=== PATIENT | male | born 1990 | race Caucasian/White ===

== ENCOUNTER 2016-12-12 14:31 | Emergency (ER) | payer OTHER ==
--- NOTE | 2016-12-12 16:14 | ERNOTE ---
Medical Problem HPI - Narrative Date of Service: 12/12/16 - General Chief Complaint: General Assessment Time Seen by Provider: 12/12/16 15:53 Source: patient Exam Limitations: no limitations - Immun/Allergies/Home Medications Immunizations: IMMUNIZATION HX Immunizations Up to Date Yes Allergies/Adverse Reactions: Allergies hydrocortisone [From Hydrocortone] Adverse Reaction (Intermediate, Verified 11/27 14:45) rash hydrocortisone acetate [From Hydrocortone] Adverse Reaction (Intermediate, Verified 12/12/16 14:45) rash hydrocortisone sod phosphate [From Hydrocortone] Adverse Reaction (Intermediate , Verified 12/12/16 14:45) rash Home Medications: HOME MEDICATIONS NK [No Home Medication] 07/21/13 [Last Taken Unknown] - History of Present History Narrative: Pt. comes in with c/o rhinorrhea, nasal congestion, cough, chest congestion, fever, and B rib pain for 5 days. Pt. denies any ear pain, cardiac chest pain, NVD, SOB, prehospital treatment, alleviating factors or aggravating factors. Review of Systems - Review of Systems Constitutional: Present: fever, fatigue, malaise. Absent: chills, weakness, weight loss, decreased activity level EYE: Present: no symptoms reported ENT: Present: nose congestion, nasal drainage, sore throat Respiratory: Present: cough. Absent: shortness of breath, orthopnea, wheezing Cardiology: Present: chest pain - B lower rib pain. Absent: palpitations Gastrointestinal/Abdominal: Present: no symptoms reported. Absent: nausea, vomiting, diarrhea Genitourinary: Present: no symptoms reported Musculoskeletal: Present: no symptoms reported. Absent: back pain, joint pain Neurological: Present: no symptoms reported. Absent: headache, dizziness/light- headedness All Other Systems: All systems neg except as marked - Patient's Past Medical History Patient History - Medical: No pertinent hx Patient History - Cardiac/Respiratory: No pertinent hx Patient History - Cancer: No Hx of Cancer Patient History - Surgical Procedures: Appendectomy Patient History - Other: None - Social History Living Situations: home Psych History: No pertinent hx Alcohol Use: none Drug Use: none - Immunizations Immunizations Up to Date: Yes Physical Exam - Physical Exam General Appearance: Present: wd/wn, alert, no apparent distress Eye Exam: Normal inspection: bilateral, PERRL: bilateral, EOMI: bilateral Ears, Nose, Throat: Present: normal ENT inspection, hearing grossly normal, normal pharynx Neck: Present: normal inspection, nontender. Absent: lymphadenopathy (R), lymphadenopathy (L) Respiratory: Present: no respiratory distress, normal breath sounds, no accessory muscle use, chest nontender, lungs clear Cardiovascular/Chest: Present: regular rate, rhythm, no murmur, normal peripheral pulses Gastrointestinal/Abdominal: Present: normal bowel sounds, nontender, nondistended, soft, no organomegaly Back Exam: Present: normal inspection, normal range of motion, no CVA tenderness , no vertebral tenderness Extremity Exam: Present: normal inspection, non-tender, no edema, normal range of motion Neurological Exam: Present: alert, oriented, normal mood/affect, no motor/ sensory deficits, 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 Absent: pallor, skin rash ED Progress - Results and Orders Patient's Lab Results:: I have reviewed the patient's lab results. - Vital Signs Patient's Vital Signs:: I have reviewed the patient's vital signs. Vital Signs: Vital Signs 12/12/16 14:39 Temperature 37.0 C Pulse Rate 97 Respiratory 12 Rate Blood Pressure 129/75 O2 Sat by Pulse 100 Oximetry - Progress/Reassessment Chief Complaint: General Assessment Departure - Departure Clinical Impression: Strep pharyngitis Disposition: Home self-care Condition: Good Instructions: Strep Throat, [place], Form - Excuse from Work, School, or Physical Activity Additional Instructions: Please follow up with Dr Corey Mcallister in 2-3 days if not improved. Referrals: Ernesto Oviedo MD [Primary Care Provider] -
[2016-12-12] MEDS ORDERED: PENICILLIN G BENZATHINE 2 ML SYRG IM ONE ×2 (16:25→16:33)
[2016-12-12 16:51] VITALS: BP 125/77
== END 2016-12-12 16:51 | disposition home or self-care (01) ==
LOC: ER 14:31
DX: J02.0 Streptococcal pharyngitis (principal)